=== PATIENT | female | born 1985 | race Caucasian/White ===

== ENCOUNTER 2020-10-01 19:11 | Emergency (ER) | payer OTHER ==
[~2020-10-01 19:11] MED LIST: BACTRIM DS TAB1 EACH PO; BENTYL10 MG PO; BREO ELLIPTA 11 EACH INH; BUSPAR5 MG PO; BUSPIRONE HCL15 MG PO; CYCLOBENZAPRINE10 MG PO; FLEXERIL10 MG PO; FLEXERIL5 MG PO; IBUPROFEN800 MG PO; IMITREX50 MG PO; LIDODERM 5%1 EACH TD; MEDROL 4MG DOSEP4 MG PO; METRONIDAZOLE500 MG PO; NORCO; NORCO 5-325 TA1 EACH PO; PREDNISONE 10MG10 MG PO; PREDNISONE 20MG20 MG PO; PROZAC20 MG PO; ROBITUSSIN W/COD5 ML PO; SINGULAIR10 MG PO; TESSALON PERLE100 M1 PO; TESSALON PERLE100 MG PO; VENTOLIN HFA IN18 GM INH; VOLTAREN **OUT50 MG PO; ZOFRAN4 MG PO; ZYRTEC10 MG PO; inhaler
[2020-10-01] MEDS ORDERED: NORCO 5-325 TA1 EACH PO (21:41)
[2020-12-03] MEDS ORDERED: VOLTAREN-XR100 MG PO (17:48)
[2020-12-03] MEDS ORDERED: DICLOFENAC SODI75 MG PO (18:07)
[2021-01-28] MEDS ORDERED: SKELAXIN800 M1 PO (15:04)
== END 2020-10-01 21:58 | disposition home or self-care (01) ==
LOC: FER 19:11
DX: S83.91XA Sprain of unspecified site of right knee, initial encounter (principal); S80.02XA Contusion of left knee, initial encounter; M79.651 Pain in right thigh; J45.909 Unspecified asthma, uncomplicated; Z79.899 Other long term (current) drug therapy; W19.XXXA Unspecified fall, initial encounter
CPT/HCPCS: 73564

== ENCOUNTER 2021-01-27 16:27 | Emergency (ER) | payer OTHER ==
[~2021-01-27 16:27] MED LIST changes: +DICLOFENAC SODI75 MG PO; +VOLTAREN-XR100 MG PO
[2021-01-27] MEDS ORDERED: CYCLOBENZAPRINE10 MG PO (18:11)
[2021-01-27] MEDS ORDERED: MEDROL 4MG DOSEP4 MG PO (18:11)
[2021-01-28] MEDS ORDERED: SKELAXIN800 M1 PO (15:04)
== END 2021-01-27 18:25 | disposition home or self-care (01) ==
LOC: FER 16:27
DX: S39.012A Strain of muscle, fascia and tendon of lower back, initial encounter (principal); X50.1XXA Overexertion from prolonged static or awkward postures, initial encounter
CPT/HCPCS: 72100; 96372; J1100; J1885

== ENCOUNTER 2021-06-08 19:45 | Emergency (ER) | payer OTHER ==
[~2021-06-08 19:45] MED LIST changes: +SKELAXIN800 M1 PO
[2021-06-08] MEDS ORDERED: ETODOLAC500 MG PO (20:55)
== END 2021-06-08 22:30 | disposition home or self-care (01) ==
LOC: FER 19:45
DX: S33.5XXA Sprain of ligaments of lumbar spine, initial encounter (principal); V49.40XA Driver injured in collision with unspecified motor vehicles in traffic accident, initial encounter; Y92.410 Unspecified street and highway as the place of occurrence of the external cause
CPT/HCPCS: 72100; J1885

== ENCOUNTER 2021-08-22 10:44 | Emergency (ER) | payer OTHER ==
[~2021-08-22 10:44] MED LIST changes: +BRIN10TA PO; +CLONAZEPAM0.5 MG PO; +ETODOLAC500 MG PO; +KLONOPIN1 MG PO; +PRENATAL FORMU1 EACH PO; +PRILOSEC20 MG PO; +SUPER B WITH V1 EACH PO
[2021-08-22 12:10] LABS: CORONAVIRUS 2019 SARS-COV-2 NEGATIVE (NEGATIVE); INFLUENZA A NAA NEGATIVE (NEGATIVE)
== END 2021-08-22 12:00 | disposition home or self-care (01) ==
LOC: FER 10:44
PROVIDERS: Emergency Medicine
DX: R53.1 Weakness (principal); R42 Dizziness and giddiness; R05.9 Cough, unspecified; Z53.8 Procedure and treatment not carried out for other reasons; Z20.822 Contact with and (suspected) exposure to COVID-19
CPT/HCPCS: 99281; U0002

== ENCOUNTER 2021-09-30 23:20 | Emergency (ER) | payer OTHER ==
[2021-10-01 00:22] LABS: BILIRUBIN NEGATIVE (NEGATIVE); BLOOD NEGATIVE Ery/uL (NEGATIVE); COLOR YELLOW (YELLOW); GLUCOSE (U) NORMAL (NORMAL); LEUKOCYTES NEGATIVE Leu/uL (NEGATIVE); NITRITE NEGATIVE (NEGATIVE); PROTEIN NEGATIVE (NEGATIVE); SPECIFIC GRAVITY >=1.030 (1.001-1.030); pH 6.5 (5.0-9.0)
[2021-10-01 00:40] LABS: CLARITY SLIGHTLY HAZY (CLEAR)
[2021-10-01 01:13] LABS: BASOPHIL 0.6 % (0-2); EOSINOPHIL 3.7 % (0-5); HCT 41.5 % (37.0-47.0); HGB 13.6 g/dl (12.5-16.0); LYMPHOCYTE 33.2 % (15-48); MCHC 32.8 g/dL (32.0-36.0); MCV 91.4 fL (78.0-100.0); MONOCYTE 9.7 % (0-12); MPV 9.3 fL (6.0-9.5); NEUTROPHIL 52.5 % (41-80); NRBC 0; PLT 231 K/uL (150-400); RBC 4.54 M/uL (4.20-5.40); RDW 12.9 % (11.5-14.0); WBC 6.7 K/uL (4.0-10.5)
[2021-10-01 01:19] LABS: ALBUMIN 3.2 g/dL (3.4-5.0); BILIRUBIN - TOTAL 0.4 mg/dL (0.2-1.0); BUN/CREAT RATIO (CALC) 11.1 RATIO; CREATININE 0.99 mg/dL (0.51-0.95); GLOBULIN (CALCULATION) 2.9 g/dL; POTASSIUM 3.6 mmol/L (3.5-5.1); TOTAL PROTEIN 6.1 g/dL (6.4-8.2)
[2021-10-01] MEDS ORDERED: ONDANSETRON ODT4 MG PO (02:42)
== END 2021-10-01 02:50 | disposition home or self-care (01) ==
LOC: FER 23:20
PROVIDERS: Emergency Medicine
DX: R10.11 Right upper quadrant pain (principal); J45.909 Unspecified asthma, uncomplicated
CPT/HCPCS: 36415; 80053; 81003; 83690; 85025; J1170; J2405; J7030; Q9967

== ENCOUNTER 2021-10-14 04:00 | Emergency (ER) | payer OTHER ==
[~2021-10-14 04:00] MED LIST changes: +ONDANSETRON ODT4 MG PO
[2021-10-14 04:39] LABS: BASOPHIL 0.9 % (0-2); EOSINOPHIL 6.9 % (0-5); HCT 41.5 % (37.0-47.0); MCH 30.2 pg (25.0-31.0); MCHC 33.7 g/dL (32.0-36.0); MCV 89.4 fL (78.0-100.0); MONOCYTE 10.3 % (0-12); MPV 9.3 fL (6.0-9.5); NEUTROPHIL 45.7 % (41-80); NRBC 0; PLT 239 K/uL (150-400); RBC 4.64 M/uL (4.20-5.40); RDW 12.6 % (11.5-14.0); WBC 5.6 K/uL (4.0-10.5)
[2021-10-14 04:59] LABS: ALBUMIN 3.9 g/dL (3.4-5.0); BILIRUBIN - TOTAL 0.4 mg/dL (0.2-1.0); BUN/CREAT RATIO (CALC) 20.2 RATIO; CREATININE 0.84 mg/dL (0.51-0.95); POTASSIUM 3.9 mmol/L (3.5-5.1); TOTAL PROTEIN 6.9 g/dL (6.4-8.2)
[2021-10-14 05:02] LABS: BILIRUBIN NEGATIVE (NEGATIVE); BLOOD NEGATIVE Ery/uL (NEGATIVE); COLOR YELLOW (YELLOW); GLUCOSE (U) NORMAL (NORMAL); LEUKOCYTES NEGATIVE Leu/uL (NEGATIVE); NITRITE NEGATIVE (NEGATIVE); PROTEIN NEGATIVE (NEGATIVE); SPECIFIC GRAVITY >=1.030 (1.001-1.030); UROBILINOGEN 0.2 mg/dL (0.2-1.0); pH 5.5 (5.0-9.0)
[2021-10-14 05:03] LABS: CLARITY SLIGHTLY HAZY (CLEAR)
[2021-10-14] MEDS ORDERED: NORCO 5-325 TA1 EACH PO (06:42)
[2021-10-14] MEDS ORDERED: PHENERGAN25 M1 PO (06:42)
== END 2021-10-14 07:00 | disposition home or self-care (01) ==
LOC: FER 04:00
PROVIDERS: Emergency Medicine Emergency Medical Services
DX: N20.0 Calculus of kidney (principal); J45.909 Unspecified asthma, uncomplicated; Z79.899 Other long term (current) drug therapy
CPT/HCPCS: 36415; 80053; 81003; 83605; 83690; 84145; 85025; J0696; J1170; J1885; J2405; J7030

== ENCOUNTER 2021-11-29 20:15 | Emergency (ER) | payer OTHER ==
[~2021-11-29 20:15] MED LIST changes: +PHENERGAN25 M1 PO
[2021-11-29 21:20] LABS: BASOPHIL 0.8 % (0-2); EOSINOPHIL 4.7 % (0-5); HCT 45.1 % (37.0-47.0); HGB 15.1 g/dl (12.5-16.0); LYMPHOCYTE 25.1 % (15-48); MCH 30.6 pg (25.0-31.0); MCHC 33.5 g/dL (32.0-36.0); MCV 91.3 fL (78.0-100.0); MONOCYTE 9.2 % (0-12); MPV 9.6 fL (6.0-9.5); NRBC 0; PLT 230 K/uL (150-400); RBC 4.94 M/uL (4.20-5.40); RDW 12.6 % (11.5-14.0); WBC 8.3 K/uL (4.0-10.5)
[2021-11-29 21:37] LABS: ALBUMIN 3.6 g/dL (3.4-5.0); BILIRUBIN - TOTAL 0.2 mg/dL (0.2-1.0); CREATININE 0.75 mg/dL (0.51-0.95); GLOBULIN (CALCULATION) 3.4 g/dL; POTASSIUM 3.5 mmol/L (3.5-5.1)
[2021-11-29 21:44] LABS: BILIRUBIN NEGATIVE (NEGATIVE); BLOOD TRACE-INTACT Ery/uL (NEGATIVE); CLARITY CLEAR (CLEAR); COLOR YELLOW (YELLOW); GLUCOSE (U) NORMAL (NORMAL); LEUKOCYTES NEGATIVE Leu/uL (NEGATIVE); NITRITE NEGATIVE (NEGATIVE); PROTEIN NEGATIVE (NEGATIVE); SPECIFIC GRAVITY >=1.030 (1.001-1.030); UROBILINOGEN 0.2 mg/dL (0.2-1.0); pH 5.5 (5.0-9.0)
[2021-11-29 21:49] LABS: BACTERIA TRACE
[2021-11-29] MEDS ORDERED: VANCOCIN HCL125 MG PO (23:47)
== END 2021-11-30 00:27 | disposition home or self-care (01) ==
LOC: FER 20:15
PROVIDERS: Physician Assistant
DX: A04.72 Enterocolitis due to Clostridium difficile, not specified as recurrent (principal)
CPT/HCPCS: 36415; 80053; 81001; 83690; 85025; C9113; J2405; J3370; J7030; Q9967

== ENCOUNTER 2021-12-13 21:57 | Emergency (ER) | payer OTHER ==
[~2021-12-13 21:57] MED LIST changes: +VANCOCIN HCL125 MG PO
[2021-12-13 22:50] LABS: BASOPHIL 0.8 % (0-2); EOSINOPHIL 3.6 % (0-5); HCT 43.6 % (37.0-47.0); HGB 14.8 g/dl (12.5-16.0); LYMPHOCYTE 24.2 % (15-48); MCH 30.7 pg (25.0-31.0); MCHC 33.9 g/dL (32.0-36.0); MCV 90.5 fL (78.0-100.0); MONOCYTE 10.1 % (0-12); MPV 9.2 fL (6.0-9.5); NEUTROPHIL 60.9 % (41-80); NRBC 0; PLT 252 K/uL (150-400); RBC 4.82 M/uL (4.20-5.40); RDW 12.9 % (11.5-14.0); WBC 7.7 K/uL (4.0-10.5)
[2021-12-13 22:51] LABS: BILIRUBIN NEGATIVE (NEGATIVE); BLOOD TRACE-INTACT Ery/uL (NEGATIVE); CLARITY CLEAR (CLEAR); COLOR YELLOW (YELLOW); GLUCOSE (U) NORMAL (NORMAL); LEUKOCYTES TRACE Leu/uL (NEGATIVE); NITRITE NEGATIVE (NEGATIVE); PROTEIN TRACE (LOW) mg/dL (NEGATIVE); SPECIFIC GRAVITY >=1.030 (1.001-1.030); UROBILINOGEN 0.2 mg/dL (0.2-1.0); pH 5.5 (5.0-9.0)
[2021-12-13 23:01] LABS: AMORPHOUS URATES CRYSTALS TRACE; BACTERIA 2+; URINARY RBC RARE
[2021-12-13 23:07] LABS: ALBUMIN 3.7 g/dL (3.4-5.0); BILIRUBIN - TOTAL 0.4 mg/dL (0.2-1.0); BUN/CREAT RATIO (CALC) 14.8 RATIO; CREATININE 0.81 mg/dL (0.51-0.95); GLOBULIN (CALCULATION) 3.5 g/dL; POTASSIUM 3.6 mmol/L (3.5-5.1); TOTAL PROTEIN 7.2 g/dL (6.4-8.2)
[2021-12-14 00:15] LABS: CORONAVIRUS 2019 SARS-COV-2 NEGATIVE (NEGATIVE); INFLUENZA A NAA NEGATIVE (NEGATIVE)
[2021-12-14] MEDS ORDERED: NORCO 5-325 TA1 EACH PO (00:23)
== END 2021-12-14 00:47 | disposition home or self-care (01) ==
LOC: FER 21:57
PROVIDERS: Internal Medicine
DX: R10.13 Epigastric pain (principal); R11.2 Nausea with vomiting, unspecified; Z20.822 Contact with and (suspected) exposure to COVID-19
CPT/HCPCS: 36415; 80053; 81001; 83690; 84145; 85025; J1170; J2405; J2550; J7120; U0002